=== PATIENT | female | born 1955 | race Caucasian/White ===

== ENCOUNTER 2019-04-17 00:37 | Emergency (ER) | payer OTHER, SELFPAY ==
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
[2019-04-17 00:47] VITALS: BP 124/83; PULSE 66; RESP 16; TEMP 36.8; O2SAT 100
[2019-04-17] MEDS: SILVER SULFADIAZINE 1% CREAM 25 GM 1 APPLIC TOP (01:18)
[2019-04-17] MEDS: HYDROCODONE/ACET 5/325 PREPACK 1 BOTTLE MISC (01:19)
[2019-04-17] MEDS: HYDROCODONE/ACET 5/325 TABLET 1 TAB PO (01:19)
== END 2019-04-17 01:28 | disposition home or self-care (01) ==
PROVIDERS: Emergency Provider Emergency Medicine
DX: T22.111A Burn of first degree of right forearm, initial encounter (principal); X12.XXXA Contact with other hot fluids, initial encounter
CPT/HCPCS: 99282; 99283